=== PATIENT | male | born 1980 | race Caucasian/White ===

== ENCOUNTER → 2020-06-20 13:20 | Outpatient (BNVA) | payer MEDICAID, SELFPAY | PROVIDERS: PCP Nurse Practitioner; Visit Provider Internal Medicine | DX: F14.11 Cocaine abuse, in remission (principal); R00.1 Bradycardia, unspecified; R07.2 Precordial pain | CPT/HCPCS: 93005; 99202 ==

== ENCOUNTER → 2020-07-20 09:31 | Outpatient (REF) | payer MEDICAID, SELFPAY ==
--- NOTE | 2020-07-20 09:36 | CA_ITS ---
Transthoracic Echocardiogram Patient (Last, First, Middle): Wilberto Aguillon, Gender: Male Date of : 1980 Age: 39 Procedure Date: 07/20/2020 Procedure Type: Transthoracic Echocardiogram Location: OP Height: 177.8 cm Weight: 83.92 kg BSA: 2.02 m2 Heart Rate: bpm BP: 118 / 70 mmHg Ancillary Specialist: JOSE ENRIQUE Referring MD: Ray Ty MD Liquid Chlorine Operator: Ludwig Giraldo MD Symptoms: R07.2 - Precordial pain Study Quality: Good ECG Rhythm: Sinus Conclusions: - Normal study Findings Left Ventricle Normal left ventricular size, thickness, and systolic function. The visually estimated ejection fraction is between 65-70%. Diastolic function is normal for age. Right Ventricle Normal right ventricular cavity size and systolic function. Atria Both atria are normal in size. There is no evidence of interatrial shunt. Aortic Valve Normal aortic valve structure and function. There is no aortic valve stenosis. There is no aortic valve regurgitation. Mitral Valve Normal mitral valve structure and function. There is trace mitral valve regurgitation. There is no mitral valve stenosis. Pulmonic Valve The pulmonic valve is likely normal. Tricuspid Valve Normal tricuspid valve structure. There is trace tricuspid valve regurgitation. The right ventricular systolic pressure is normal. The right ventricular systolic pressure is 19 mmHg. Normal right atrial pressure. There is no evidence of pulmonary hypertension. Great Vessels All visible segments of the aorta are normal in size. The visualized portions of the pulmonary artery and branches are normal. Venous The inferior vena cava is normal in size and collapses greater than 50% with inspiration. Pericardium/Pleural There is no evidence of pericardial effusion. Prior Study Comparison No prior study available for comparison. Measurements M-Mode Liner Measurements Normals - Women/Men IVSd: 1.52 0.6-0.9/0.6-1.0 cm 2D Linear Measurements IVSd: 0.90 0.6-0.9/0.6-1.0 cm LVIDd: 4.78 3.9-5.3/4.2-5.9 cm LVIDd Index: 2.37 2.4-3.2/2.2-3.1 cm/m2 LVIDs: 2.95 2.0-3.6 cm LVPWd: 1.07 0.7-1.1 cm Ao Root: 2.70 2.1-3.5 cm LA Diam: 3.50 2.7-3.8/3.0-4.0 cm LAIDs Index: 1.73 1.5-2.3 cm/m2 LV Mass: 337.57 67-162/88-224 g LV Mass Index: 167.11 43-95/49-115 g/m2 LVOT Diam: 2.20 3.0+(-)1.3 cm 2D Systolic Function EF 4C: 73.70 >55% EF 2C: 60.10 >55% EF BiP: 67.40 >55% Mitral Valve MV Pk E: 0.64 MV PK A: 0.48 MV Decel Time: 90.00 E/A: 1.30 E'Lateral: 15.00 E'Medial: 9.79 E/E' Med: 6.50 E/E' Lat: 4.30 PHT: 26.00 MVA PHT: 8.46 Decel [place]: 7.13 Aortic Valve AoV Pk Yomi: 1.36 AoV Pk Grad: 7.00 LVOT LVOT Pk Yomi: 1.14 LVOT Mn Yomi: 0.72 LVOT VTI: 0.22 LVOT Pk Grad: 5.00 LVOT Mn Grad: 3.00 LVOT Diam: 2.20 LVOT Area: 3.80 Diastolic Function MV Pk E: 0.64 MV Pk A: 0.48 E/A: 1.30 E'Medial: 9.79 E/E' Med: 6.50 E' Laterial: 15.00 E/E' Lat: 4.30 Tricuspid Valve TR Pk Yomi: 1.98 TR Pk Grad: 16.00 RA Press: 3.00 RVSP: 19.00 Great Vessels Aorta Ao Root-2D: 2.70 2.0-3.7 cm Ao Asc: 2.60 2.1-3.4 cm Ao Arch: 2.50 Updated in Other Vendor System with Status of Final Ludwig Giraldo MD electronically signed on 07/20/2020 12:58:06 PM with status of Final
--- NOTE | 2020-07-20 09:36 | ECG_ITS ---
Hook-up date: 2020-07-20 10:32:00 Duration: 10:09:00 Test Indications: R00.1 - Bradycardia, unspecified Medications: 45816 QRS complexes 40 Ventricular ectopics which represent <1 % of total QRS comp. 6 Supraventricular ectopics which represent <1 % of total QRS comp. * Paced QRS complexs which represent % of total QRS comp. VENTRICULAR ECTOPY 40 Isolated 0 Bigeminal Cycles 0 Couplets 0 Runs 0 Beats in Runs * Beats LONGEST at * BPM at :: -- * Beats FASTEST at * BPM at :: -- SUPRAVENTRICULAR ECTOPY 6 Isolated 0 Couplets 0 Runs 0 Beats in Runs * Beats LONGEST at * BPM at :: -- * Beats FASTEST at * BPM at :: -- HEART RATES 52 MIN at 15:44:26 2020-07-20 87 AVG 140 MAX at 17:06:55 2020-07-20 LONGEST RR 1.1920 secs at 15:44:24 2020-07-20 S-T LEVELS Channel 1 - 128 mm at 10:32:00 2020-07-20 - 128 mm at 10:32:00 2020-07-20 Channel 2 - 128 mm at 10:32:00 2020-07-20 - 128 mm at 10:32:00 2020-07-20 Channel 3 - 128 mm at 02:95:11 -- - 128 mm at 02:95:11 Total recording of 10 hours Basic rhythm Normal sinus rhythm No long pause or profound bradycardia Rare Premature ventricular complexes Patient did not report any symptoms in the diary Referred By: Ray Ty Overread By: FLORIDA MARTIN MD
== END ==
LOC: HO.CARD 09:31
PROVIDERS: Visit Provider Internal Medicine
DX: R07.2 Precordial pain (principal); R00.1 Bradycardia, unspecified
CPT/HCPCS: 93225; 93226; 93306

== ENCOUNTER → 2020-08-03 12:42 | Outpatient (BNVA) | payer MEDICAID, SELFPAY | PROVIDERS: PCP Nurse Practitioner; Visit Provider Internal Medicine | DX: R00.1 Bradycardia, unspecified (principal); R07.2 Precordial pain; F14.11 Cocaine abuse, in remission | CPT/HCPCS: 99212 ==